=== PATIENT | female | born 1960 | race Caucasian/White ===

== ENCOUNTER 2022-06-17 11:00 | Outpatient (RCR) | payer OTHER, SELFPAY ==
--- NOTE | 2022-04-11 08:10 | HP.OTEVAL_ITS ---
Patient's Visit Information ANOOP HOYOS is a 61 year old F, referred to Occupational Therapy by HARRISON REDDING, with a diagnosis of TFCC and SL tear. 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 pt states she had fall while working- she works at the [email or web address] and suffered a fall. Pt states she did not seek medical help initially but waited until next day- she was placed in a brace - pt states pain and ROM did not change the WC dr ordered MRI- and they found the injury- So pt did get to Dr. Redding- and had sx. soon 03/26/22. pt arrives today 2 weeks and 1 day s/p TFCC debridement and SL repair. pt arrives with clam shell orthosis on- demo ind. with doffing and doffing orthosis without difficulty- pt is limited with all ADLs and IADLs at this time and newly healing structures. pt states she would like to return to her PLOF. - ADLs Dressing: Pants Fasteners: Tie shoes Eating: Use silverware, Cut food Bathing: Handle washcloth & soap Kitchen: Chop with knife, Open jars, Open bottle caps - Pain right wrist 3 Pain Intensity Range: 0, 2, 5 - ROM Forearm: right left WNL Wrist: right left 65/60 Opposition: Kapandji Opposition scale right 9 left 10 ROM Comments: right RD 5* UD 10* left UD 35* RD 20. pt demo full digit ROM demo full composite fist - Strength [place] Dental Lab Technician: right NT left 75# Lateral Pinch: right NT left 14# Tripod Pinch: right NT left 16# - Quick DASH-Disab of Arm,Shoulder& Hand Quick DASH Score: 78.3325 - Goals Goal:100% adherence to protocol: Yes Comment: TFCC and SL repair guidelines Goal:Daily scar massage when approriate: Yes Goal:ROM equal to unaffected hand: Yes Goal:[place] Dental Lab Technician/Pinch strength at least 75% of unaffected hand: Yes Goal:No pain with affected hand use: Yes Goal:Full use of affected hand in daily activities including: Yes - Rehabilitation General Assessment: Pt is s/p 2 weeks and 1 day from Scapholunate ligament repair with ECRL tendon graft- tami of Arthrex swivel lock anchor proximal portion of scaphoid and the other placed on the dorsal ulnar aspect of lunate- and TFCC debridement due to TFCC tear. Pt demo need for skilled OTR/CHT services 1-2x week for 10-12 weeks to recover pt through her procedure and return pt to OF. Therapy will include use of custom orthosis- ed. of pts dx and protection of repair- ed.pt on avoidance PROM or/of overpressure on wrist at this time - initiation of short arc wrist and forearm ROM at week 4-6 and once pt has gain ROM transition pt to strengthening at weeks 8-10 or based on guidance. pt demo understanding and agree to POC. Rehabilitation Potential: Excellent - Anticipated Interventions A/AAROM/PROM, Scar Care, Triggerpoint Release, Modalities, Orthoses, Joint Protection/Energy Conservation, Ergonomic Education, Fine Motor Coord/Naren, Education re assistive Equipment, Education re Diagnosis - Visit Plan Frequency: 1-2x /Week Duration: 3 Months General Plan: pt ed. on use of orthosis at all times except when she needs to perform her scar massage-. Advised pt to continue with tendon glide ex. for fingers to limit joint stiffness- ed. pt on full ROM of shoulder and elbow- TEXT: Thank you for the opportunity to evaluate your patient. For Medicare and Medicare HMO plans, please review the plan of care and approve it. It will need to be FAXED BACK to us at [phone] for Medicare purposes. Please let me know if there are questions or concerns regarding this plan of care. Physician Signature: Date:
--- NOTE | 2022-05-06 11:23 | HP.OTREVAL ---
HARRISON DUTTON, It has been my pleasure to treat ANOOP HOYOS over the last 5 visits for TFCC and SL tear. Please see the progress note below for an update on the occupational therapy plan of care! Subjective: pt arrives 5 weeks 6 days s/p SL repair. and TFCC debridement. pt denies pain and reports she is performing her ex. about every two hours. Objective/Function: pt demo with full composite fist. opposition to LF. denies tingling/numbness. RD 15 UD 15. forearm supination 60* increase from N at eval. Pronation WNL. pt reports less stiffness with her wrist ROM. pt has initiated dart throwers motion in limited plan of motion. pt tolerating well and demo good understanding-. pt has been instructed in no over pressure or PROM at this time. Pt demo understanding. re-eval and advise on any change in POC. following SL repair guidelines. Plan Frequency: 1-2x /Week Duration: 3 Months Plan: cont to follow SL repair Goals - Goals Patient Goals: Regain Mobility, Regain Strength, Use Hand/Wrist/Arm Normally Again Goal:100% adherence to protocol: Yes Goal:Daily scar massage when approriate: Yes Goal:ROM equal to unaffected hand: Yes Goal:Mass Spectrometry Specialist/Pinch strength at least 75% of unaffected hand: Yes Goal:No pain with affected hand use: Yes Goal:Full use of affected hand in daily activities including: Yes Anticipated Interventions Anticipated Interventions: A/AAROM/PROM, Scar Care, Triggerpoint Release, Modalities, Orthoses, Joint Protection/Energy Conservation, Ergonomic Education, Fine Motor Coord/Naren, Education re assistive Equipment, Education re Diagnosis Please do not hesitate to contact me at [phone] by phone or if you have questions or concerns regarding this new plan of care! Sincerely, Marva Urrutia, OTR/L, CHT
--- NOTE | 2022-05-12 11:27 | OTREVAL_ITS ---
HARRISON DUTTON, It has been my pleasure to treat ANOOP HOYOS over the last 6 visits for TFCC and SL tear. Please see the progress note below for an update on the occupational therapy p gemma of care! Subjective: pt arrvies 6 weeks 5 days s/p from SL repair and TFCC debridement. pt states she is doing well and taking her brace off while sitting- performing scar mtg. and her forearm supination and pronation ex. pt also working on dart throwers motion in limited plane of movement. pt reports compliance with her HEP- orthosis use Objective/Function: right wrist ROM 30/25. forearm supination 60*. UD 15*. RD 10*. pt reports no pain. and can form composite fist. pt making gains with her ROM. and will continue to progress pt as tolerated and per your repair guidelines. Plan Frequency: 1-2x /Week Duration: 3 Months Plan: cont to follow Dr. MIMI gomes Goals - Goals Patient Goals: Regain Mobility, Regain Strength, Use Hand/Wrist/Arm Normally Again Goal:100% adherence to protocol: Yes Goal:Daily scar massage when approriate: Yes Goal:ROM equal to unaffected hand: Yes Goal:Curtain Hemmer Automatic/Pinch strength at least 75% of unaffected hand: Yes Goal:No pain with affected hand use: Yes Goal:Full use of affected hand in daily activities including: Yes Anticipated Interventions Anticipated Interventions: A/AAROM/PROM, Scar Care, Triggerpoint Release, Modalities, Orthoses, Joint Protection/Energy Conservation, Ergonomic Education, Fine Motor Coord/Naren, Education re assistive Equipment, Education re Diagnosis Please do not hesitate to contact me at [phone] by phone or Fax: if you have questions or concerns regarding this new plan of care! Sincerely, Marva Urrutia, OTR/L, CHT
--- NOTE | 2022-06-17 11:13 | HP.OTREVAL ---
HARRISON DUTTON, It has been my pleasure to treat ANOOP HOYOS over the last 15 visits for TFCC and SL tear. Please see the progress note below for an update on the occupational therapy plan of care! 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 pt states she was able to perform her job tasks. pt states she her wrist felt good after work. Objective/Function: right forearm supination 75*. right forearm pronation 90*. right wrist RD 15*. right wrist UD 25*. right wrist 45/35. right stair builder strength 35#. right lateral pinch 10#. right tripod pinch 10#. pt has made good gains with her ROM-and strength pt was advised to continue with her HEP of stretching and AROM and strengthening as tolerated. Plan Plan: pt to return to for possible D/C from OT services. Goals - Goals Patient Goals: Regain Mobility, Regain Strength, Use Hand/Wrist/Arm Normally Again Goal:100% adherence to protocol: Yes Goal:Daily scar massage when approriate: Yes Goal:ROM equal to unaffected hand: Yes Goal:Vice President Of Sales/Pinch strength at least 75% of unaffected hand: Yes Goal:No pain with affected hand use: Yes Goal:Full use of affected hand in daily activities including: Yes Anticipated Interventions Anticipated Interventions: A/AAROM/PROM, Scar Care, Triggerpoint Release, Modalities, Orthoses, Joint Protection/Energy Conservation, Ergonomic Education, Fine Motor Coord/Naren, Education re assistive Equipment, Education re Diagnosis Please do not hesitate to contact me at [phone] by phone or if you have questions or concerns regarding this new plan of care! Sincerely, Marva Urrutia, OTR/L, CHT
--- NOTE | 2022-09-10 15:58 | HP.OTDCSUM_ITS ---
It has been my pleasure to treat ANOOP HOYOS under orders from HARRISON DUTTON, for the diagnosis of TFCC and SL tear for a total of 15 visit(s). Please see the following information for a summary of their discharge status. % Improvement: 85 Objective/Function: right forearm supination 75*. right forearm pronation 90*. right wrist RD 15*. right wrist UD 25*. right wrist 45/35. right youth care specialist strength 35#. right lateral pinch 10#. right tripod pinch 10#. pt has made good gains with her ROM-and strength pt was advised to continue with her HEP of stretching and AROM and strengthening as tolerated. Patient Goals: Regain Mobility, Regain Strength, Use Hand/Wrist/Arm Normally Again Goal:100% adherence to protocol: Yes Goal:Daily scar massage when approriate: Yes Goal:ROM equal to unaffected hand: Yes Goal:Furniture Upholstery Mechanic/Pinch strength at least 75% of unaffected hand: Yes Goal:No pain with affected hand use: Yes Goal:Full use of affected hand in daily activities including: Yes Plan: pt to return to for possible D/C from OT services. Discharge Comments: pt has made good gains following her TFCC debridement and SL repair. pt has slight deficit with wrist flex/ext but this does not stop pt with IADLs or ADLS. pt did return to work and felt good performing her work tasks with her work restrictions. If there are questions or concerns regarding this patient's occupational therapy, please fell free to call me at [phone]. Thank you for the referral of this patient. Sincerely, Marva Urrutia, OTR/L, CHT
== END 2022-06-17 19:00 | disposition home or self-care (01) ==
LOC: OT 11:00
PROVIDERS: PCP Family Medicine
DX: S63.591D Other specified sprain of right wrist, subsequent encounter (principal)
CPT/HCPCS: 97110; 97140; 97166; 97530